=== PATIENT | female | born 1985 | race Caucasian/White ===

== ENCOUNTER 2021-03-26 15:00 | Emergency (ER) | payer OTHER ==
--- NOTE | 2021-03-26 15:26 | ED Physician Documentation ---
PD HPI UPPER EXT INJURY - Stated complaint Stated Complaint: LEFT THUMB LAC - Chief complaint Chief Complaint: Laceration - History obtained from History obtained from: Patient - History of Present Illness Location: Left, Finger (thumb) Type of injury: Laceration (she states a ceramic plant pot broke as she was cleaning it, causing laceration of her thumb, with brisk bleeding and feeling of numbness at side tip distal to the lac.) Where injury occurred: Home Timing - onset: Today Timing - details: Abrupt onset, Still present (bleeding if not holding direct pressure or taped tightly.) Worsened by: Moving, Palpating Associated symptoms: Numbness (distal to the lac on side of thumb.). No: Weakness Similar symptoms before: Has not had sx before Recently seen: Not recently seen Review of Systems Constitutional: denies: Fever Nose: denies: Rhinorrhea / runny nose, Congestion Throat: denies: Sore throat Respiratory: denies: Cough Neurologic: reports: Numbness (at side tip of thumb since injury.). denies: Focal weakness PD PAST MEDICAL HISTORY - Past Medical History Past Medical History: No - Present Medications Home Medications: Ambulatory Orders Medication Instructions Recorded Confirmed No Known Home Medications 03/26/21 03/26/21 - Allergies Allergies/Adverse Reactions: Allergies Allergy/AdvReac Type Severity Reaction Status Date / Time codeine Allergy Anaphylaxis Verified 03/26/21 15:03 PD ED PE NORMAL - Vitals Vital signs reviewed: Yes - General General: Alert and oriented X 3, Well developed/nourished - Derm Derm: Normal color, Warm and dry - Extremities Extremities: Other (thumb lac as described. ) - Neuro Neuro: Alert and oriented X 3, No motor deficit, Normal speech, Other (able to flex/extend thumb with just pain at lac. There is decreased sensation of ulnar side of thumb tip distal to the lac, which is just distal to the IP joint ulnar palmar side. No FB noted. Small squirting arterial bleeding without direct pressure. ) Results - Vitals Vitals: Vital Signs - 24 hr 03/26/21 03/26/21 15:03 16:32 Temperature 36.6 C 36.5 C Heart Rate 60 57 L Respiratory 16 14 Rate Blood Pressure 130/79 111/78 O2 Saturation 99 99 Oxygen O2 Source Room air Procedures - Laceration (location) left thumb Length in cm: 1.5 Wound type: Curved, Into subcut fat, Clean Neurovascular status: Motor intact, Other (arteriolar bleeding without pressure. There is good color and cap refill in nailbed/tip of thumb, so good collateral from other side of finger digital artery.). No: Sensory intact Anesthesia: Lidocaine 2% Wound preparation: Irrigated copiously NS, Wound explored, To the base. No: FB identified Skin layer closure: Nylon, Interrupted, Size #-0 - enter number (4), Sutures - enter # (8) Other: Patient tolerated well, No complications, Neurovascular intact, Dressing applied, Tetanus UTD Departure - Departure Disposition: Home, Self Care Clinical Impression: Thumb laceration Qualifiers: Encounter type: initial encounter Damage to nail status: without damage Foreign body presence: without foreign body Laterality: left Qualified Code(s): S61.012A - Laceration without foreign body of left thumb without damage to nail, initial encounter Condition: Stable Record reviewed to determine appropriate education?: Yes Instructions: ED Laceration Hand Comments: My suture care instructions it is okay to wash and shower. Clean off the wound twice a day with soap and water, or peroxide and water. Apply some antibiotic ointment to it to keep it moist. Also to watch for signs of infection such as purulence, redness or increasing pain. Return to your primary care or the ER at the specified time for suture removal. Suture removal 9 to 10 days. Tylenol ibuprofen as needed for pains. Light use of the thumb is good so it does not heal up stiffened. Discharge Date/Time: 03/26/21 16:57
[2021-03-26] MEDS ORDERED: LIDOCAINE-MPF 2% 5 ML VIAL SUBQ STA (15:58)
[2021-03-26 16:34] VITALS: BP 111/78
== END 2021-03-26 16:57 | disposition home or self-care (01) ==
LOC: ED 15:00
DX: S61.012A Laceration without foreign body of left thumb without damage to nail, initial encounter (principal); W26.8XXA Contact with other sharp object(s), not elsewhere classified, initial encounter; Y93.89 Activity, other specified; Y92.009 Unspecified place in unspecified non-institutional (private) residence as the place of occurrence of the external cause
CPT/HCPCS: 12001; 99282; 99283